=== PATIENT | female | born 1970 | race Two or more races ===

== ENCOUNTER 2020-08-24 12:30 | Inpatient (IN) | payer OTHER ==
[~2020-08-24] VITALS: Ht 162.6 cm; Wt 59.0 kg
[2020-08-24] MEDS ORDERED: [UNRECOGNIZED DRUG - OTHER] PO (14:42)
[2020-08-24] MEDS ORDERED: SYNTHROID100 MCG PO (14:42)
== END 2020-09-02 17:01 | disposition home or self-care (01) | DRG 742 ==
LOC: SURH 12:30 → OB/GYN 08-29 05:47 → O/R 08-29 05:47 → OB/GYN 08-29 10:29
PROVIDERS: ADMIT Specialist; ATTEND Specialist
PROC: 0UB10ZZ Excision of Left Ovary, Open Approach (ICD-10-PCS; 2020-08-29)
PROC: 0UB60ZZ Excision of Left Fallopian Tube, Open Approach (ICD-10-PCS; 2020-08-29)
PROC: 0UT50ZZ Resection of Right Fallopian Tube, Open Approach (ICD-10-PCS; 2020-08-29)
PROC: 0USG0ZZ Reposition Vagina, Open Approach (ICD-10-PCS; 2020-08-29)
PROC: 0UT90ZZ Resection of Uterus, Open Approach (ICD-10-PCS; principal; 2020-08-29 07:00)
PROC: 0UJD0ZZ Inspection of Uterus and Cervix, Open Approach (ICD-10-PCS; 2020-08-30)
DX: D25.1 Intramural leiomyoma of uterus (principal); D62 Acute posthemorrhagic anemia; D25.2 Subserosal leiomyoma of uterus; N72 Inflammatory disease of cervix uteri; N80.0 Endometriosis of uterus; N80.1 Endometriosis of ovary; N83.12 Corpus luteum cyst of left ovary; N83.8 Other noninflammatory disorders of ovary, fallopian tube and broad ligament; N93.9 Abnormal uterine and vaginal bleeding, unspecified; E03.9 Hypothyroidism, unspecified; Z90.721 Acquired absence of ovaries, unilateral